=== PATIENT | male | born 1960 | race Caucasian/White ===

== ENCOUNTER 2018-10-10 23:13 | Emergency (ER) | payer BC ==
[~2018-10-10] VITALS: Ht 175.3 cm; Wt 84.1 kg
[~2018-10-10 23:13] MED LIST: ASPIRIN E.C. 8181 MG PO; BYSTOLIC10 MG PO; BYSTOLIC5 MG PO; CEPHALEXIN500 M1 PO; NORVASC 10MG10 MG PO; NORVASC 5MG5 MG/TAB PO; PLAVIX 75MG TAB75 MG PO; ROXICODONE 55 MG/TAB PO; SENOKOT S 50 MG1 TAB PO
[2018-10-10 23:17] VITALS: TEMP 97.9
[2018-10-10 23:37] LABS: BASO # 0.1 (0.0-0.2); BASO % 0.3 % (0.0-2.0); EOS # 0.1 (0.0-0.7); EOS % 0.4 % (0-4.0); GRAN # 16.8 (1.4-6.5); GRAN % 87.7 % (42.2-75.2); HEMOGLOBIN 12.3 g/dl (13.5-18.0); LYMPH # 1.1 (1.2-3.4); LYMPH % 5.5 % (20.0-51.0); MEAN CELL VOLUME 80 fl (80.0-100.0); MEAN CORPUSCULAR HEMOGLOBIN 26 pg (27.0-31.0); MEAN CORPUSCULAR HGB CONC 32 g/dl (33.0-37.0); MONO # 1.1 (0.1-0.6); MONO % 5.5 % (1.7-9.3); PLATELET COUNT 259 K/mm3 (130-400); RED BLOOD COUNT 4.73 M/mm3 (4.20-5.60); REDCELL DISTRIBUTION WIDTH-CV 14.7 % (11.5-14.5)
[2018-10-11 00:18] LABS: ALANINE AMINOTRANSFERASE 37 U/L (21-72); ALBUMIN 4.1 gm/dL (3.5-5.0); ALKALINE PHOSPHATASE 147 U/L (50-136); ANION GAP 11 mmol/L (7-16); AST,SGOT 73 U/L (15-37); BILIRUBIN,TOTAL 0.7 mg/dL (0.0-1.0); BLOOD UREA NITROGEN 33 mg/dL (9-20); CALCIUM 9.1 mg/dL (8.4-10.2); CARBON DIOXIDE 22 mmol/L (22-30); CHLORIDE 100 mmol/L (98-107); CREATININE, serum 1.12 mg/dL (0.66-1.25); GLUCOSE 155 mg/dL (74-106); LIPASE 57 U/L (23-300); POTASSIUM 4.2 mmol/L (3.4-5.0); SODIUM 133 mmol/L (137-145); TOTAL PROTEIN 8.4 gm/dL (6.4-8.2)
[2018-10-11 00:27] LABS: TROPONIN-I < 0.012 ng/mL (0.000-0.035)
[2018-10-11] MEDS ORDERED: AMOXICILLIN 8751 TAB PO (03:50)
[2018-10-11 03:59] VITALS: BP 132/80; PULSE 69
--- NOTE | 2018-10-11 04:38 | NUR ---
Visited with patient three times and advised him of his options for optimum health care. Offered to call ambulance for transport to [facility] after Dr. Boyer secured an accepting physician. Pt declined this. Stated, " no, I am not doing this. I am not going to [place]. I will be ok." Was offered option for admission to this facility. Pt declined again. He declared that hospitalization was too expensive. I offered to involve Insurance Claims Representative and ask them for options for financial help. Pt also declined Insurance Claims Representative help. He stated, "I am staying here til morning and then go home. I may drive to [place] Sunday or Sunday and check into the ER there." I was unable to change patient's mind. I did explain to him possible consequences of declining care, such as increasing pain, severe sepsis and possible . Patient voiced understanding, but declined care anyway.
--- NOTE | 2018-10-11 14:00 | NUR ---
[facility] rec'd a social media manager referral from the ER doctor early this morning. reported patient had some financial concerns. Patient was discharged before MADHU was in this morning. MADHU contacted patient's PCP, Dr Michele, but patient has not been seen at that office since August 2016. MADHU attempted to contact patient but could only leave a message.
== END 2018-10-11 04:01 | disposition left against medical advice (07) ==
LOC: COL.ER 23:13
PROVIDERS: Emergency Medicine
DX: R10.84 Generalized abdominal pain (principal); I10 Essential (primary) hypertension; I73.9 Peripheral vascular disease, unspecified; Z98.890 Other specified postprocedural states; Z87.891 Personal history of nicotine dependence; Z79.02 Long term (current) use of antithrombotics/antiplatelets
CPT/HCPCS: J1170; J2405; J2543; J7030; Q9967